=== PATIENT | female | born 1990 | race African-American/Black ===

== ENCOUNTER 2017-05-10 10:17 | Emergency (ER) | payer OTHER ==
[~2017-05-10] VITALS: Ht 162.6 cm; Wt 81.7 kg
[~2017-05-10 10:17] MED LIST: ADVAIRDISKUS; ALBUTEROL INH; ALBUTEROL NEB; AMOXICILLIN875 MG PO; CLARITIN10 MG PO; EPIPEN 2-P0.3 MG/0.3 IM; IBUPROFEN 800800 MG PO; KEFLEX500 MG PO; MACROBID 100 M100 M1 PO; MEDROLDOSEPACK PO; NAPROSYN500 MG PO; NORCO 5-325 TA1 EACH PO; PEPCID40 MG PO; PHENERGAN 25 MG25 M1 PO; PREDNISONE 10 M10 M1 PO; PREDNISONE 20 M20 M1 PO; PRENATAL; PROAIR HFA8.5 GM IH; PROMETHAZINE-C120 ML PO; PROVENTIL HFA6.7 G1 INH; ZANTAC 150MG T150 M1 PO; ZOFRAN ODT4 MG PO; ZPAK PO; ZYRTEC 10 MG TA10 MG PO
[2017-05-10] MEDS ORDERED: MOBIC7.5 MG PO (10:56)
== END 2017-05-10 11:00 | disposition home or self-care (01) ==
LOC: ER 10:17
DX: M77.11 Lateral epicondylitis, right elbow (principal); J45.909 Unspecified asthma, uncomplicated; F17.210 Nicotine dependence, cigarettes, uncomplicated; Z91.040 Latex allergy status; Z88.8 Allergy status to other drugs, medicaments and biological substances